=== PATIENT | female | born 1995 | race Caucasian/White ===

== ENCOUNTER 2018-03-07 09:58 | Emergency (ER) | payer BC ==
[~2018-03-07] VITALS: Ht 177.8 cm; Wt 75.5 kg
[2018-03-07 10:09] VITALS: BP 133/88
[2018-03-07] MEDS ORDERED: BIOTIN 0.3 MG-21 TAB (10:20)
[2018-03-07] MEDS ORDERED: ALDACTONE50 MG PO (10:20)
[2018-03-07] MEDS ORDERED: MULTIPLE VITAMI1 CAP PO (10:21)
[2018-03-07] MEDS ORDERED: CLEOCIN HCL300 MG PO (11:10)
[2018-03-07 11:53] VITALS: PULSE 98; TEMP 98.1
== END 2018-03-07 11:53 | disposition home or self-care (01) ==
LOC: COL.ER 09:58
DX: J36 Peritonsillar abscess (principal)

== ENCOUNTER 2018-04-07 00:12 | Emergency (ER) | payer BC ==
[~2018-04-07] VITALS: Ht 177.8 cm; Wt 72.7 kg
[~2018-04-07 00:12] MED LIST: ALDACTONE50 MG PO; BIOTIN 0.3 MG-21 TAB; CLEOCIN HCL300 MG PO; MULTIPLE VITAMI1 CAP PO
[2018-04-07 00:18] VITALS: BP 138/79; TEMP 97.8
[2018-04-07 00:52] LABS: BASO # 0.1 (0.0-0.2); BASO % 0.2 % (0.0-2.0); GRAN % 88.4 % (42.2-75.2); HEMATOCRIT 39.3 % (35.0-45.0); HEMOGLOBIN 13.4 g/dl (12.0-15.0); LYMPH # 1.3 (1.2-3.4); LYMPH % 6.1 % (20.0-51.0); MEAN CELL VOLUME 83 fl (80.0-95.0); MEAN CORPUSCULAR HEMOGLOBIN 29 pg (26.0-32.0); MEAN CORPUSCULAR HGB CONC 34 g/dl (33.0-37.0); MONO # 1.1 (0.1-0.6); MONO % 4.9 % (1.7-9.3); PLATELET COUNT 238 K/mm3 (130-400); RED BLOOD COUNT 4.71 M/mm3 (4.10-5.30); REDCELL DISTRIBUTION WIDTH-CV 12.9 % (11.5-14.5)
[2018-04-07 01:06] LABS: ALBUMIN 4.4 gm/dL (3.5-5.0); BILIRUBIN,TOTAL 0.7 mg/dL (0.0-1.0); C-REACTIVE PROTEIN 1.1 mg/dL (0.0-0.9); CALCIUM 9.4 mg/dL (8.4-10.2); CREATININE, serum 0.91 mg/dL (0.52-1.25); POTASSIUM 3.7 mmol/L (3.4-5.0); TOTAL PROTEIN 8.2 gm/dL (6.4-8.2)
[2018-04-07] MEDS ORDERED: CLEOCIN HCL300 MG PO (03:07)
[2018-04-07 03:45] VITALS: PULSE 98
== END 2018-04-07 03:45 | disposition home or self-care (01) ==
LOC: COL.ER 00:12
PROVIDERS: Physician Assistant
DX: J36 Peritonsillar abscess (principal)
CPT/HCPCS: J1100; J1200; J2405; J3010; Q9967

== ENCOUNTER → 2018-11-05 | Outpatient (CLI) | payer BC | LOC: COL.RAD 09:30 | DX: E22.1 Hyperprolactinemia (principal) | CPT/HCPCS: A9585 ==